=== PATIENT | female | born 1990 | race Caucasian/White ===

== ENCOUNTER 2021-01-21 20:41 | Emergency (ER) | payer MEDICAID ==
[~2021-01-21] VITALS: Ht 152.4 cm; Wt 68.0 kg
[2021-01-21 20:41] VITALS: BP 127/76
[2021-01-21] MEDS ORDERED: MUPI22OI2 TP (21:32)
[2021-01-21] MEDS ORDERED: DOXY-326 PO (21:32)
[2021-01-21] MEDS ORDERED: TRAM50TA2 PO (21:32)
== END 2021-01-21 21:44 | disposition home or self-care (01) ==
LOC: ER 20:41
DX: O90.9 Complication of the puerperium, unspecified (principal); T81.49XA Infection following a procedure, other surgical site, initial encounter; R10.9 Unspecified abdominal pain

== ENCOUNTER 2023-06-17 14:50 | Emergency (ER) | payer MEDICAID ==
[~2023-06-17] VITALS: Ht 149.9 cm; Wt 82.1 kg
[~2023-06-17 14:50] MED LIST: DOXY-326 PO; MUPI22OI2 TP; TRAM50TA2 PO
[2023-06-17 16:20] LABS: BASOPHILS % (AUTO) 0.1 % (0.0-2.0); EOSINOPHILS % (AUTO) 0.7 % (0.0-6.0); HEMATOCRIT 42 % (33-45); HEMOGLOBIN 14.1 g/dL (11.5-14.8); LYMPHOCYTES # (AUTO) 1.6 K/uL (0.8-4.8); LYMPHOCYTES % (AUTO) 26.2 % (20.0-44.0); MEAN CORPUSCULAR HEMOGLOBIN 29 PG (26.0-33.0); MEAN CORPUSCULAR HGB CONC 34 g/dl (31.0-36.0); MEAN CORPUSCULAR VOLUME 86 fL (82-100); MONOCYTES # (AUTO) 0.4 K/uL (0.1-1.30); MONOCYTES % (AUTO) 5.9 % (2.0-12.0); NEUTROPHILS # (AUTO) 4.2 K/uL (1.8-8.9); NEUTROPHILS % (AUTO) 67.1 % (43.0-81.0); PLATELET COUNT (AUTO) 198 K/uL (150-450); RED BLOOD CELL COUNT(AUTO) 4.89 MIL/uL (4.0-5.2); RED CELL DISTRIBUTION WIDTH 14.4 % (11.5-15.0); WHITE BLOOD COUNT (AUTO) 6.3 K/uL (4.3-11.0)
[2023-06-17 16:47] LABS: APPEARANCE,URINE BLOODY (CLEAR)
[2023-06-17 16:48] LABS: COLOR,URINE RED (YELLOW); PREGNANCY TEST URINE QUAL NEGATIVE (NEGATIVE)
[2023-06-17 16:52] LABS: RBC,URINE TOO NUMEROUS TO COUN /HPF (0-2)
[2023-06-17 16:53] LABS: CALCIUM, SERUM 9.1 mg/dL (8.5-10.1); CREATININE 0.6 mg/dL (0.6-1.3); POTASSIUM 3.9 mmol/L (3.5-5.1)
[2023-06-17 16:53] LABS: BACTERIA,URINE None seen /HPF (None Seen); WBC,URINE 0-2 /HPF (0-3)
[2023-06-17 16:59] LABS: LACTIC ACID 2.2 mmol/L (0.4-2.0)
[2023-06-17 17:00] LABS: BILIRUBIN,DIRECT 0.2 mg/dL (0.0-0.2); TOTAL PROTEIN, SERUM 7.8 g/dL (6.4-8.2)
[2023-06-17] MEDS ORDERED: KETOROLAC TROMETHAMINE 15 MG/ML VIAL ONE (17:16)
[2023-06-17] MEDS: KETOROLAC TROMETHAMINE 15 MG/ML VIAL IV ONE (17:22)
[2023-06-17] MEDS: IV NS 0.9% 1,000 ML BAG IV ONE (17:22)
[2023-06-17 22:07] VITALS: BP 131/74; TEMP 98.4; O2SAT 100
== END 2023-06-17 22:07 | disposition home or self-care (01) ==
LOC: ER 14:53
DX: K59.00 Constipation, unspecified (principal); R10.32 Left lower quadrant pain
CPT/HCPCS: 99285; 74176; 96374; 76856; 96361; 85025; 80048; 87086; 83605 ×2; 83690; 80076; 84703; 81001; 36415; J7030; J1885